=== PATIENT | female | born 1940 | race Caucasian/White ===

== ENCOUNTER 2019-01-25 10:29 | Emergency (ER) | payer OTHER ==
[2019-01-25 10:34] VITALS: BP 133/70; PULSE 77; TEMP 97.5; BMI 27.9
[2019-01-25] MEDS ORDERED: IBUPROFEN 600 MG TABLET (FP) PO ONE ×2 (10:52→10:56)
--- NOTE | 2019-01-25 10:57 | PDOC ---
History of Present Illness - General Chief Complaint: Pain Stated Complaint: FALL/LT FOOT PAIN Time Seen by Provider: 01/25/19 10:39 History Source: Patient, Family (ale bowen translated per pt request) Exam Limitations: No Limitations (L foot pain X 2wks) Past History - Travel Traveled outside of the country in the last 30 days: No Close contact w/someone who was outside of country & ill: No - Past Medical History Allergies/Adverse Reactions: Allergies Allergy/AdvReac Type Severity Reaction Status Date / Time No Known Allergies Allergy Verified 01/25/19 10:34 Home Medications: Ambulatory Orders Acetaminophen 325 mg PO ACDIN 10 Days #30 tablet 01/25/19 COPD: No Diabetes: Yes HTN: Yes - Suicide/Smoking/Psychosocial Hx Smoking History: Never smoked Review of Systems - Review of Systems Able to Perform ROS?: No Musculoskeletal: Yes: Other (L foot pain). No: Back Pain, Gout *Physical Exam - Vital Signs Last Vital Signs Temp Pulse Resp BP Pulse Ox 97.5 F L 77 18 133/70 97 01/25/19 10:31 01/25/19 10:31 01/25/19 10:31 01/25/19 10:31 01/25/19 10:31 - Physical Exam General Appearance: Yes: Nourished Respiratory/Chest: positive: Lungs Clear Cardiovascular: positive: Regular Rhythm, Regular Rate, S1, S2 Extremity: positive: Normal Capillary Refill, Normal Inspection (L foot: + tenderness and swelling in the metataral region of the 5th toe, distal pulse intact) Neurologic: positive: lead security officer II-XII NML intact, Fully Oriented, Alert Moderate Sedation - Procedure Monitoring Vital Signs: Procedure Monitoring Vital Signs Temperature 97.5 F L 01/25/19 10:31 Pulse Rate 77 01/25/19 10:31 Respiratory Rate 18 01/25/19 10:31 Blood Pressure 133/70 01/25/19 10:31 O2 Sat by Pulse Oximetry (%) 97 01/25/19 10:31 ED Treatment Course - RADIOLOGY Radiology Studies Ordered: Category Date Time Status FOOT-LEFT [RAD] Stat Radiology 01/25/19 10:52 Ordered Medical Decision Making - Medical Decision Making 01/25/19 10:55 78 years old female presents with left foot pain after is accidentally stubbing her feet against the furniture 2 weeks ago. Patient presents with pain and swelling of the foot she is here with her daughter Sandie translated for [place]. Examination consistent with tenderness and swelling in the fifth metatarsal region her distal pulses intact and she does have a stable gait. Plan will be to do an x-ray 01/25/19 11:50 x-ray consistent with 5th metatarsal head fracture patient is post op shoe with podiatry follow-up *DC/Admit/Observation/Transfer Diagnosis at time of Disposition: Metatarsal fracture Qualifiers: Encounter type: initial encounter Metatarsal bone: fifth Fracture type: closed Fracture alignment: nondisplaced Laterality: left Qualified Code(s): S92.355A - Nondisplaced fracture of fifth metatarsal bone, left foot, initial encounter for closed fracture - Discharge Dispostion Disposition: HOME Condition at time of disposition: Stable - Prescriptions Prescriptions: Acetaminophen 325 mg PO ACDIN 10 Days #30 tablet - Referrals Referrals: Shayla Pandey MD [Staff Physician] - Vinod Barclay MD [Staff Physician] - 24 hours - Patient Instructions Printed Discharge Instructions: DI for Foot Fracture Additional Instructions: x-ray shows a fracture of in the foot.Please wear the postop until you see podiatry this week for further evaluation of the foot. - Post Discharge Activity
== END 2019-01-25 12:05 | disposition home or self-care (01) ==
LOC: JERFT 10:29
DX: S92.355A Nondisplaced fracture of fifth metatarsal bone, left foot, initial encounter for closed fracture (principal); W22.03XA Walked into furniture, initial encounter; Y93.89 Activity, other specified; Y92.018 Other place in single-family (private) house as the place of occurrence of the external cause; Y99.8 Other external cause status; I10 Essential (primary) hypertension; E11.9 Type 2 diabetes mellitus without complications
CPT/HCPCS: 73630-TC-LT; 99281-25